=== PATIENT | male | born 1960 | race Caucasian/White ===

== ENCOUNTER 2025-07-20 16:14 | Emergency (ER) | payer MEDICAID ==
[~2025-07-20] VITALS: Ht 172.7 cm; Wt 68.0 kg
[2025-07-20 16:23] VITALS: O2SAT 97
[2025-07-20] MEDS: HALOPERIDOL LACTATE 5MG/ML VIAL IM ONE ×2 (17:55→21:24)
[2025-07-20] MEDS: DIPHENHYDRAMINE 50MG/ML VIAL IM PRN (17:55)
[2025-07-21 01:41] LABS: CREATININE 0.6 mg/dL (0.6-1.3)
[2025-07-21 01:42] LABS: ETHANOL BLOOD < 10 mg/dL (<10); PROTEIN TOTAL 6.2 g/dL (6.0-8.3); UREA NITROGEN BLOOD 11 mg/dL (9-23)
[2025-07-21 01:43] LABS: ASPARTATE AMINOTRANSFERASE 45 IU/L (<34)
[2025-07-21 01:44] LABS: BASOPHILS % 0.9 % (0.0-2.0); BILIRUBIN DIRECT 0.4 mg/dL (<=3.0); BILIRUBIN TOTAL 1.1 mg/dL (0.1-1.0); EOSINOPHILS % 4.5 % (0.0-5.0); HEMATOCRIT. 40.2 % (42.0-52.0); HEMOGLOBIN. 13.5 g/dL (14.0-18.0); LYMPHOCYTES % 23.5 % (20.0-50.0); MEAN PLATELET VOLUME 8.4 fl (7.4-10.4); MONOCYTES % 8.1 % (2.0-8.0); NEUTROPHILS % 63.0 % (40.0-76.0); PLATELET 258 x1000/uL (130-400); RED BLOOD CELL COUNT 4.23 mill/uL (4.7-6.1); RED CELL DISTRIBUTION WIDTH 14.3 % (11.6-14.6)
[2025-07-21 23:05] LABS: CLARITY URINE CLEAR (CLEAR); COLOR URINE YELLOW (YELLOW); GLUCOSE URINE 1+ (NEGATIVE); KETONES URINE NEGATIVE (NEGATIVE); LEUKOCYTE ESTERASE URINE NEGATIVE (NEGATIVE); NITRITE URINE NEGATIVE (NEGATIVE); OCCULT BLOOD URINE NEGATIVE (NEGATIVE); PH URINE 7.5 (4.5-8.0); PROTEIN URINE NEGATIVE (NEGATIVE); SPECIFIC GRAVITY URINE 1.008 (1.005-1.030); UROBILINOGEN URINE 1.0 E.U./dL (0.2-1.0)
[2025-07-21 23:06] LABS: *AMPHETAMINES SCREEN URINE NEGATIVE (NEGATIVE); *BENZODIAZEPINES SCREEN URINE NEGATIVE (NEGATIVE)
[2025-07-21 23:07] LABS: *BARBITURATES SCREEN URINE NEGATIVE (NEGATIVE); *COCAINE SCREEN URINE NEGATIVE (NEGATIVE); CANNABINOID URINE SCREEN PRESUMPTIVE POSITIVE (NEGATIVE); ECSTASY MDMA SCREEN URINE NEGATIVE (NEGATIVE); METHADONE URINE SCREEN NEGATIVE (NEGATIVE); OPIATES URINE SCREEN NEGATIVE (NEGATIVE); PHENCYCLIDINE URINE SCREEN NEGATIVE (NEGATIVE)
[2025-07-21 23:36] LABS: BACTERIA URINE NONE SEEN; RBC URINE NONE SEEN /hpf (0-2); SQUAMOUS EPITHELIAL CELL URINE NONE SEEN /lpf (RARE/1+); WBC URINE NONE SEEN /hpf (0-2)
[2025-07-23 11:25] VITALS: BP 119/76; PULSE 84; RESP 17; TEMP 36.9; O2SAT 97
== END 2025-07-23 11:37 | disposition home or self-care (01) ==
LOC: ER 16:14
DX: R45.851 Suicidal ideations (principal); F10.129 Alcohol abuse with intoxication, unspecified; Z79.899 Other long term (current) drug therapy; Z20.822 Contact with and (suspected) exposure to COVID-19; Y90.9 Presence of alcohol in blood, level not specified
CPT/HCPCS: 80076; 80305; 81003; 80307; 80329; 80320; 85025; 36415; 93005; 96372; 99285; 87426; J1200; J1630; G0480